=== PATIENT | female | born 1975 | race Caucasian/White ===

== ENCOUNTER 2021-01-21 09:50 | Emergency (ER) | payer OTHER, SELFPAY ==
[2021-01-21 09:56] VITALS: BP 129/54; PULSE 71; RESP 16; TEMP 36.5; O2SAT 99
--- NOTE | 2021-01-21 10:00 | RT.EKG_ITS ---
APPROVED REPORT Exam: Resting ECG Reason for Exam: Syncope Patient Location: E HR:66 bpm ECG Measurements Heart Rate 66 AXIS NE 163 P 60 QRSd 85 QRS 15 QT 391 T 34 QTc 411 Conclusion Sinus rhythm.. Anteroseptal Q >35mS, T neg, V1-V2
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
[2021-01-21 10:47] LABS: Abs Immature Grans 0.05 10^3/uL (0.0-0.06); Absolute Basophil Count 0.09 10^3/uL (0.0-0.2); Absolute Eosinophil Count 0.14 10^3/uL (0.0-0.7); Absolute Lymphocyte Count 1.58 10^3/uL (1.2-3.4); Absolute Monocyte Count 0.68 10^3/uL (0.1-0.8); Basophils % 0.9; Eosinophils % 1.4; HCT 37.8 % (36.0-46.0); Immature Grans % 0.5; Lymphocytes % 15.6; MCHC 31.7 % (32.0-36.0); MCV 81.8 fL (80-95); MPV 10.7 fL (8.0-11.0); Monocytes % 6.7; Neutrophils % 74.9; Nucleated RBC 0 %; Platelet Count 289 10^3/uL (130-400); RBC 4.62 10^6/uL (3.93-5.22); RDW 14.6 % (11.7-14.6); WBC 10.14 10^3/uL (4.4-10.8)
[2021-01-21 10:56] LABS: Bilirubin Negative (Negative); Blood Negative (Negative); Clarity Clear (Clear); Glucose Negative (Negative); Ketones Negative (Negative); Leukocyte Esterase Negative (Negative); Nitrite Negative (Negative); Specific Gravity 1.015 (1.005-1.025); Urobilinogen 0.2 EU/dL (Up TO 0.2)
--- NOTE | 2021-01-21 11:09 | DI.RAD_ITS ---
Exam(s) XR KNEE LT 3V AP,LAT,ISAAC EXAM: XR KNEE LT 3V AP,LAT,ISAAC CLINICAL HISTORY: L medial knee pain. TECHNIQUE: 2D digital imaging was performed of the left knee. Three images were obtained. AP, late ral and PA tunnel views were obtained. COMPARISON: CR XR CHEST 2V PA LATERAL from 01/21/2021 FINDINGS: BONES: No acute fracture is present. No bony destructive lesion is seen. JOINTS: The knee is normally aligned. No joint effusion is seen. SOFT TISSUE: Normal. IMPRESSION: Normal radiographs of the left knee. DATA REPOSITORY: RADIATION DOSE DELIVERED:
--- NOTE | 2021-01-21 11:09 | DI.RAD_ITS ---
Exam(s) XR CHEST 2V PA LATERAL EXAM: XR CHEST 2V PA LATERAL CLINICAL HISTORY: syncope TECHNIQUE: 2D digital imaging was performed of the chest. Two images were obtained. PA and lateral views were obtained. COMPARISON: No exams were available for comparison FINDINGS: MEDIASTINUM: Normal. HEART: Normal. PULMONARY VASCULATURE: Normal. LUNGS: Clear. PLEURAL SPACE: No pleural effusion or pneumothorax. BONE:Within normal limits for the patient's age. OTHER FINDINGS:Normal. IMPRESSION: No acute pulmonary findings. DATA REPOSITORY: RADIATION DOSE DELIVERED:
[2021-01-21 11:19] LABS: Albumin 4.2 g/dL (3.4-5.0); Alkaline Phosphatase 48 U/L (46-116); BUN 14 mg/dL (7-18); Bilirubin, Total 0.5 mg/dL (0.2-1.0); CREATININE 0.8 mg/dL (0.55-1.02); Calcium 9.2 mg/dL (8.5-10.1); Glucose 97 mg/dL (74-106); Potassium 4.1 mmol/L (3.5-5.1); Sodium 140 mmol/L (136-145); Total Protein 7.5 g/dL (6.4-8.2)
[2021-01-21 11:20] LABS: ALT 15 U/L (14-59); AST 11 U/L (15-37); Anion Gap 9.2 mmol/L (3-11); CO2 26.8 mmol/L (21.0-32.0); Chloride 104 mmol/L (98-107); Magnesium 2.2 mg/dL (1.8-2.4); Troponin I < 0.05 ng/mL (<0.06)
[2021-01-21 11:21] LABS: D-Dimer 263 ng/mlFEU (<500)
--- NOTE | 2021-01-21 18:38 | NUR.NOTE ---
referral to cm for pcp establish
== END 2021-01-21 13:28 | disposition home or self-care (01) ==
PROVIDERS: Emergency Provider Emergency Medicine
DX: M25.561 Pain in right knee (principal); W18.39XA Other fall on same level, initial encounter; R55 Syncope and collapse
CPT/HCPCS: 29505; 36415; 73562; 80053; 81025; 93005; 99284; 71046; 81003; 83735; 84484; 85025; 85379; 93010

== ENCOUNTER 2021-04-08 11:54 | Outpatient (REF) | payer OTHER, SELFPAY ==
[2021-04-08 20:47] LABS: Abs Immature Grans 0.03 10^3/uL (0.0-0.06); Absolute Basophil Count 0.08 10^3/uL (0.0-0.2); Absolute Eosinophil Count 0.13 10^3/uL (0.0-0.7); Absolute Lymphocyte Count 1.49 10^3/uL (1.2-3.4); Absolute Monocyte Count 0.42 10^3/uL (0.1-0.8); Absolute Neutrophil Count 3.36 10^3/uL (1.2-6.7); Basophils % 1.5; Eosinophils % 2.4; HCT 35.7 % (36.0-46.0); HGB 10.9 g/dL (11.2-15.7); Immature Grans % 0.5; MCH 24.8 pg (27.0-33.0); MCHC 30.5 % (32.0-36.0); MCV 81.3 fL (80-95); Monocytes % 7.6; Nucleated RBC 0 %; Platelet Count 285 10^3/uL (130-400); RBC 4.39 10^6/uL (3.93-5.22); RDW 14.3 % (11.7-14.6); RDW-SD 41.6 fL; WBC 5.51 10^3/uL (4.4-10.8)
[2021-04-08 20:53] LABS: Hemoglobin A1C 5.3 % (<5.7)
[2021-04-08 21:33] LABS: Calculated LDL 118 mg/dL (<100); Cholesterol 202 mg/dL (<200); HDL Cholesterol 75 mg/dL (40-60); Triglyceride 46 mg/dL (<150)
[2021-04-08 21:41] LABS: ESR < 1 mm/hr (0-20)
[2021-04-11 11:43] LABS: Lyme Ab w Rflx to Lyme Confirm Negative (Negative)
== END 2021-04-08 11:55 | disposition home or self-care (01) ==
LOC: NCHCN 11:54
PROVIDERS: Visit Provider Family Medicine
DX: E03.9 Hypothyroidism, unspecified (principal); M25.59 Pain in other specified joint; R53.83 Other fatigue; Z13.220 Encounter for screening for lipoid disorders; Z13.1 Encounter for screening for diabetes mellitus
CPT/HCPCS: 80061; 85652; 83036; 84443; 85025; 86618

== ENCOUNTER 2021-04-27 19:17 | Outpatient (REF) | payer OTHER, SELFPAY ==
[2021-04-27 19:32] LABS: Anion Gap 10.6 mmol/L (3-11); BUN 16 mg/dL (7-18); CO2 25.4 mmol/L (21.0-32.0); CREATININE 0.8 mg/dL (0.55-1.02); Calcium 8.8 mg/dL (8.5-10.1); Chloride 103 mmol/L (98-107); Glucose 94 mg/dL (74-106); Magnesium 1.9 mg/dL (1.8-2.4); Potassium 3.7 mmol/L (3.5-5.1); Sodium 139 mmol/L (136-145)
[2021-04-27 19:35] LABS: Iron 22 ug/dL (50-170); Total Iron Binding Capacity 386 ug/dL (250-450); Transferrin Sat 6 % (15-50)
== END 2021-04-27 19:18 | disposition home or self-care (01) ==
LOC: LBN 19:17
PROVIDERS: Visit Provider Family Medicine
DX: R00.2 Palpitations (principal); D64.9 Anemia, unspecified
CPT/HCPCS: 80048; 83540; 83550; 83735

== ENCOUNTER 2021-06-03 15:11 | Outpatient (REF) | payer OTHER, SELFPAY ==
[2021-06-05 14:44] LABS: COVID-19 RT-PCR UVMMC Result Negative (Negative)
== END 2021-06-03 15:12 | disposition home or self-care (01) ==
LOC: LBN 15:11
PROVIDERS: Visit Provider Physician Assistant Medical
DX: Z20.822 Contact with and (suspected) exposure to COVID-19 (principal); J02.0 Streptococcal pharyngitis
CPT/HCPCS: U0003

== ENCOUNTER 2022-04-05 12:58 | Outpatient (REF) | payer OTHER, SELFPAY ==
--- NOTE | 2022-04-05 12:20 | PAPFT_PTH ---
PATIENT: Rob Gaffney LOC: [facility]#:[id number] AGE/SX: 46/F ROOM: RE04/05/[address]: Raad Duong : 1975 BED: DIS: 04/05/2022 SPEC #: [id number] RECD: 04/05/22 18:19 STATUS: CLAUDE REQ #: [id number] MILLY: 04/05/22 12:[address]: Raad Duong DEPT: [facility] Cytology RECD BY: Velvet Beltran ENTERED: 04/05/22 18:19 SP TYPE: PAPFT OTHR DR: Unknown,Unknown Tissues: 1 - CX/ENDOCX FOR PAP SMEARS Procedures: PAP THIN PREP/[facility] Screening HPV DNA PROBE Comments: [id number]
[2022-04-05 19:47] LABS: HCT 36.8 % (36.0-46.0); HGB 11.2 g/dL (11.2-15.7); MCH 22.8 pg (27.0-33.0); MCHC 30.4 % (32.0-36.0); MCV 75 fL (80-95); MPV 11.4 fL (8.0-11.0); Platelet Count 299 10^3/uL (130-400); RBC 4.92 10^6/uL (3.93-5.22); RDW 15.8 % (11.7-14.6); RDW-SD 42.7 fL; WBC 7.15 10^3/uL (4.4-10.8)
[2022-04-05 20:11] LABS: TSH (W/Ref FT4) 0.27 uIU/mL (0.36-3.74)
[2022-04-05 20:45] LABS: Iron 24 ug/dL (50-170); Total Iron Binding Capacity 457 ug/dL (250-450); Transferrin Sat 5 % (15-50)
== END 2022-04-05 12:59 | disposition home or self-care (01) ==
LOC: NCHCN 12:58
PROVIDERS: Visit Provider Family Medicine
DX: E03.9 Hypothyroidism, unspecified (principal); D64.9 Anemia, unspecified; Z12.4 Encounter for screening for malignant neoplasm of cervix; Z11.51 Encounter for screening for human papillomavirus (HPV)
CPT/HCPCS: 85027; 88142; 83540; 83550; 84439; 84443; 87624

== ENCOUNTER 2022-05-16 16:44 | Outpatient (REF) | payer OTHER, SELFPAY | END 2022-05-16 16:45 | disposition home or self-care (01) | LOC: LBN 16:44 | PROVIDERS: Visit Provider Physician Assistant | DX: R35.0 Frequency of micturition (principal) | CPT/HCPCS: 87086 ==

== ENCOUNTER 2022-12-01 14:06 | Outpatient (REF) | payer OTHER, SELFPAY ==
[2022-12-01 16:39] LABS: TSH (W/Ref FT4) 1.71 uIU/mL (0.36-3.74)
== END 2022-12-01 14:07 | disposition home or self-care (01) ==
LOC: NCHCN 14:06
PROVIDERS: PCP Family Medicine; Visit Provider Family Medicine
DX: E03.9 Hypothyroidism, unspecified (principal)
CPT/HCPCS: 84443

== ENCOUNTER 2023-07-05 16:48 | Outpatient (REF) | payer OTHER, SELFPAY ==
[2023-07-05 15:50] LABS: TSH (W/Ref FT4) 1.31 uIU/mL (0.36-3.74)
[2023-07-06 08:23] LABS: Hepatitis B Surface Ag Negative (Negative)
[2023-07-06 09:11] LABS: HIV-1/2 Ag & Ab Screen Negative (Negative)
[2023-07-06 10:42] LABS: Syphilis Serology (RPR) Negative (Negative)
[2023-07-06 14:36] LABS: Chlamydia Result Negative (Negative); GC Result Negative (Negative)
== END 2023-07-05 16:49 | disposition home or self-care (01) ==
LOC: NCHCN 16:48
PROVIDERS: PCP Family Medicine; Referring Provider Family Medicine; Visit Provider Family Medicine
DX: E03.9 Hypothyroidism, unspecified (principal); Z20.2 Contact with and (suspected) exposure to infections with a predominantly sexual mode of transmission; Z11.3 Encounter for screening for infections with a predominantly sexual mode of transmission; Z11.4 Encounter for screening for human immunodeficiency virus [HIV]; Z11.59 Encounter for screening for other viral diseases
CPT/HCPCS: 87340; 87389; 87491; 87591; 84443; 86592

== ENCOUNTER 2023-08-30 15:21 | Outpatient (REF) | payer OTHER, SELFPAY | END 2023-08-30 15:22 | disposition home or self-care (01) | LOC: LBN 15:21 | PROVIDERS: PCP Family Medicine; Visit Provider Physician Assistant Medical | DX: J02.9 Acute pharyngitis, unspecified (principal) | CPT/HCPCS: 87070 ==

== ENCOUNTER 2024-08-16 17:48 | Outpatient (REF) | payer MEDICAID, SELFPAY | END 2024-08-16 17:49 | disposition home or self-care (01) | LOC: LBN 17:48 | PROVIDERS: PCP Family Medicine; Visit Provider Family Medicine | DX: J02.9 Acute pharyngitis, unspecified (principal) | CPT/HCPCS: 87070 ==